=== PATIENT | female | born 1995 | race African-American/Black ===

== ENCOUNTER → 2018-12-01 | Outpatient (CLI) | payer SELFPAY ==
--- NOTE | 2018-12-01 15:47 | RADIOLOGY REPORT (SQ) ---
EXAM DESCRIPTION: U/S [id number] TRNABD 1GES W/ODOP COMPLETED DATE/TIME: 12/01/2018 3:29 pm REASON FOR STUDY: Z34.01 ENCNTR FOR SUPRVSN OF NORMAL FIRST PREG, FIRST TRIMESTER Z34.01 ENCNTR FOR SUPRVSN OF NORMAL FIRST PREG, FIRST TRIMES COMPARISON: None. TECHNIQUE: Transabdominal static and realtime grayscale images acquired of the pelvis. Additional se lected spectral and color Doppler images recorded. All images stored on PACs. bHCG: Not applicable. CLINICAL DATES: LMP 09/18/2018. 10 weeks 4 days LIMITATIONS: None. FINDINGS: FETUS: Single Living intrauterine . ULTRASOUND EGA: 10 weeks 5 days. ULTRASOUND NONI: 06/24/2019 EFW: Not applicable less than 20 weeks. CRL: 3.8 cm. FHR: 171 beats per minute. SURVEY: Too early to assess. AMNIOTIC FLUID: Adequate amount. PLACENTA: Not yet developed due to early gestation. SUBCHORIONIC BLEED: No SIZE OF BLEED: Not applicable. UTERUS: No masses or anomalies. 11.4 x 10.4 x 7.6 cm. CERVICAL LENGTH: 3.6 cm. Closed. RIGHT ADNEXA: Normal ovary with normal vascular flow. 4.2 x 2.7 x 2 cm. No adnexal free fluid. No adnexal masses. LEFT ADNEXA: Normal ovary with normal vascular flow. 2.6 x 2.1 x 1.7 cm. No adnexal free fluid. No adnexal masses. FREE FLUID: None. OTHER: No other significant finding. IMPRESSION: LIVING INTRAUTERINE . EGA 10 weeks 5 days. Trimester of : First - 0 to 13 weeks. TECHNICAL DOCUMENTATION: JOB ID: [id number] [employer]- All Rights Reserved rev Reading location - IP/workstation name: [email or web address]
== END ==
LOC: RAD 16:23
PROVIDERS: ATTEND Midwife
DX: Z34.01 Encounter for supervision of normal first pregnancy, first trimester (principal)
CPT/HCPCS: 76801

== ENCOUNTER 2018-12-19 09:41 | Emergency (ER) | payer MEDICAID ==
[2018-12-19 09:56] VITALS: BP 108/63
[2018-12-19] MEDS ORDERED: NORMAL SALINE 1000 ML 1,000 ML IV ONE (10:13)
--- NOTE | 2018-12-19 10:15 | ER Document Report ---
ED Medical Screen (RME) - General Chief Complaint: Constipation Stated Complaint: CONSTIPATION Time Seen by Provider: 12/19/18 10:09 Primary Care Provider: FELICIA MCGOVERN CNM [Primary Care Provider] - Follow up as needed TRAVEL OUTSIDE OF THE [place] IN LAST 30 DAYS: No - HPI Notes: 12/19/18 10:14 Patient is a 22-year-old female approximately 12-13 weeks who presents to the emergency department with mother complaining of inability to have a bowel movement over the last 5 days and having rectal pain. Patient states that she is still able to drink some fluids, but has not been eating much over the last couple days due to decreased appetite. She is not vomiting or having any vaginal discharge, odor, bleeding. No abdominal pain. Denies SANTORO, fever, neck pain, URI, CP, SOB, or rash. I have treated and performed a rapid initial assessment of this patient. A comprehensive ED assessment and evaluation of the patient, analysis of test results and completion of medical decision making process will be conducted by additional ED providers. PHYSICAL EXAMINATION: GENERAL: Well-appearing, well-nourished and in no acute distress. A&Ox4. Answers questions appropriately. LUNGS: Breath sounds clear to auscultation bilaterally and equal. No wheezes rales or rhonchi. HEART: Regular rate and rhythm without murmurs, rubs, gallops. ABDOMEN: Soft, nondistended abdomen. No guarding, no rebound. Normal bowel sounds present. No CVA tenderness bilaterally. Nontender Extremities: No cyanosis, clubbing, or edema b/l. NEUROLOGICAL: Normal speech, normal gait. PSYCH: Normal mood, normal affect. - Related Data Allergies/Adverse Reactions: nickel [Nickel] Allergy (Verified 01/24/13 16:07) rash Past Medical History Neurological Medical History: Reports: Hx Seizures - Immunizations Immunizations up to date: Yes Hx Diphtheria, Pertussis, Tetanus Vaccination: Yes Physical Exam - Vital signs Vitals: Temp Pulse Resp BP Pulse Ox 98.3 F 110 H 16 108/63 100 12/19/18 09:55 12/19/18 09:55 12/19/18 09:55 12/19/18 09:55 12/19/18 09:55 Course - Vital Signs Vital signs: Temp Pulse Resp BP Pulse Ox 98.3 F 110 H 16 108/63 100 12/19/18 09:55 12/19/18 09:55 12/19/18 09:55 12/19/18 09:55 12/19/18 09:55 Doctor's Discharge - Discharge Referrals: FELICIA MCGOVERN CNM [Primary Care Provider] - Follow up as needed
[2018-12-19] MEDS ORDERED: MAGNESIUM CITRATE 296 ML BOTTLE PO ONE (11:33)
[2018-12-19] MEDS ORDERED: METOCLOPRAMIDE HCL INJ/PF 10 MG/2 ML SDV IV ONE (11:34)
--- NOTE | 2018-12-19 11:34 | ER Document Report ---
ED General - General Chief Complaint: Constipation Stated Complaint: CONSTIPATION Time Seen by Provider: 12/19/18 10:09 Primary Care Provider: FELICIA MCGOVERN CNM [NO LOCAL MD] - Follow up in 3-5 days Notes: Patient is a 22-year-old female currently 12 weeks gravid that presents to the emergency department for chief complaint of constipation. Patient states his been having trouble with bowel movements, the last normal and she is had was about 5 days ago, she is been trying axin-iyp-cxfxwed medications including Metamucil, MiraLAX and milk of magnesia, but she is only been sipping them whenever they are offered by her mother to try to help with her constipation. She states she is been having nausea and vomiting as well. She did try an enema, without much success of relief of her symptoms so they decided to bring her to the emergency department to be evaluated. She is previously healthy otherwise, denies any fevers, chills, dysuria, hematuria, abdominal pain, or chest pain or shortness of breath Past Medical History: Seizure disorder Past Surgical History: Denies surgical history Social History: Denies tobacco, alcohol or drug use Family History: Reviewed and noncontributory for presenting illness Allergies: Reviewed, see documented allergy list. REVIEW OF SYSTEMS: Other than noted above, the 12 point review of systems was reviewed with the patient and were negative, all pertinent findings are included in the HPI. PHYSICAL EXAMINATION: Vital signs reviewed, nursing noted reviewed. GENERAL: Well-appearing, well-nourished and appears mildly uncomfortable HEAD: Atraumatic, normocephalic. EYES: Eyes appear normal, extraocular movements intact, sclera anicteric, conjunctiva are normal. ENT: nares patent, oropharynx clear without exudates. Moist mucous membranes. NECK: Normal range of motion, supple without lymphadenopathy LUNGS: Breath sounds clear to auscultation bilaterally and equal. No wheezes rales or rhonchi. HEART: Heart rate mildly tachycardic and regular rhythm without murmurs ABDOMEN: Soft, nontender, normoactive bowel sounds. No rebound, guarding, or rigidity. No masses appreciated. EXTREMITIES: Nontender, good range of motion, no pitting or edema. NEUROLOGICAL: No focal neurological deficits. Moves all extremities spontaneously Motor and sensory grossly intact on exam. PSYCH: Normal mood, normal affect. SKIN: Warm, Dry, normal turgor, no rashes or lesions noted on exposed skin TRAVEL OUTSIDE OF THE [place] IN LAST 30 DAYS: No - Related Data Allergies/Adverse Reactions: nickel [Nickel] Allergy (Verified 01/24/13 16:07) rash Past Medical History - Social History Smoking Status: Never Smoker Chew tobacco use (# tins/day): No Frequency of alcohol use: None Drug Abuse: None Family History: None, Reviewed & Not Pertinent Patient has suicidal ideation: No Patient has homicidal ideation: No Neurological Medical History: Reports: Hx Seizures Renal/ Medical History: Denies: Hx Peritoneal Dialysis - Immunizations Immunizations up to date: Yes Hx Diphtheria, Pertussis, Tetanus Vaccination: Yes Physical Exam - Vital signs Vitals: Temp Pulse Resp BP Pulse Ox 98.3 F 110 H 16 108/63 100 12/19/18 09:55 12/19/18 09:55 12/19/18 09:55 12/19/18 09:55 12/19/18 09:55 Course - Re-evaluation Re-evalutation: Patient seen and examined vital signs reviewed. Patient was treated with IV fluid, given magnesium citrate, patient initially offered an enema, but wanted to try the magnesium citrate first, she was given a dose of Reglan, to help her keep down the magnesium citrate. Results were reviewed when available and demonstrated possible uti in on UA, will treat with keflex as outpatient and send for culture The patient was re-evaluated and was not able to have BM with just magnesium citrate only tolerated 1/2 bottle. Patient then agreed to soap subs enema, of which she tolerated well and had a very large bowel movement and felt much better. Evaluation was most consistent with constipation and uti, given instruction for using miralax and advised keflex for UTI in . Patient agreed to follow -up as well. Results were discussed with the patient at this point, after careful consideration I feel that that patient can be discharged from the emergency department, the patient was educated treatments and reasons to return to the emergency department based on their presumed diagnosis as noted above, they were advised to followup with a primary care physician in 2-3 days. Patient was agreeable to plan of care. *Note is created using voice recognition software and may contain spelling, syntax or grammatical errors. Laboratory 12/19/18 12:52 Urine Color YELLOW Urine Appearance SLIGHTLY-CLOUDY Urine pH 5.0 Ur Specific [place] 1.016 Urine Protein NEGATIVE Urine Glucose (UA) NEGATIVE Urine Ketones 80 H Urine Blood NEGATIVE Urine Nitrite NEGATIVE Urine Bilirubin NEGATIVE Urine Urobilinogen 2.0 H Ur Leukocyte Esterase TRACE H Urine WBC (Auto) 8 Urine RBC (Auto) 3 Urine Bacteria (Auto) 3+ Squamous Epi Cells Auto 1 Urine Mucus (Auto) FEW Urine Ascorbic Acid NEGATIVE - Vital Signs Vital signs: Temp Pulse Resp BP Pulse Ox 98.3 F 110 H 16 108/63 100 12/19/18 09:55 12/19/18 09:55 12/19/18 09:55 12/19/18 09:55 12/19/18 09:55 - Laboratory Laboratory results interpreted by me: 12/19/18 12:52 Urine Ketones 80 H Urine Urobilinogen 2.0 H Ur Leukocyte Esterase TRACE H Discharge - Discharge Clinical Impression: Constipation Qualifiers: Constipation type: unspecified constipation type Qualified Code(s): K59.00 - Constipation, unspecified UTI (urinary tract infection) Qualifiers: Urinary tract infection type: site unspecified Hematuria presence: without hematuria Qualified Code(s): N39.0 - Urinary tract infection, site not specified Condition: Stable Disposition: HOME, SELF-CARE Instructions: Constipation ([facility]), Urinary Tract Infection ([facility]) Additional Instructions: It was noticed to have some bacteria in your urine, so we will give an antibiotic for 5 days, to take as well, we also send this for culture, if the antibiotic does not fit the bacteria that grows in the urine, we will call you and let you know, please take a daily capful of MiraLAX with whatever liquid beverage you would like, once daily, if you start to have liquid diarrhea, I would back off this medication and take it every other day if that occurs. Prescriptions: RX: Cephalexin Monohydrate [Keflex 500 mg Capsule] 500 mg PO BID 5 Days #10 capsule Polyethylene Glycol 3350 [Miralax] 17 gm PO DAILY #238 gm Referrals: FELICIA MCGOVERN CNM [NO LOCAL MD] - Follow up in 3-5 days
[2018-12-19 13:14] LABS: APPEARANCE,URINE SLIGHTLY-CLOUDY; BILIRUBIN,URINE NEGATIVE (NEGATIVE); COLOR,URINE YELLOW; GLUCOSE, URINE NEGATIVE (NEGATIVE); KETONES,URINE 80 mg/dL (NEGATIVE); LEUKOCYTE ESTERASE,URINE TRACE (NEGATIVE); NITRITE,URINE NEGATIVE (NEGATIVE); PROTEIN,URINE NEGATIVE (NEGATIVE); URINE SPECIFIC GRAVITY 1.016
[2018-12-19] MEDS ORDERED: MINERAL OIL 30 ML UDCUP PR ONE (13:46)
== END 2018-12-19 14:34 | disposition home or self-care (01) ==
LOC: ER 09:41
DX: O26.891 Other specified pregnancy related conditions, first trimester (principal); O23.41 Unspecified infection of urinary tract in pregnancy, first trimester; K59.00 Constipation, unspecified; Z3A.12 12 weeks gestation of pregnancy; Z79.899 Other long term (current) drug therapy
CPT/HCPCS: 99283; 96361; 96374; 87086; 81001; J3490 ×2; J2765; J7030

== ENCOUNTER 2019-01-18 14:20 | Emergency (ER) | payer MEDICAID ==
[2019-01-18 15:14] VITALS: BP 108/65
--- NOTE | 2019-01-18 15:43 | ER Document Report ---
HPI - HPI Time Seen by Provider: 01/18/19 15:42 Pain Level: 0 Notes: Patient is a 23-year-old female who is 17 weeks who reports that she fell down 3-4 stairs. She states that she tripped and fell landing on her right hip and right lumbar back area. Patient reports no symptoms and no pain but states that she would like to have her baby checked on. Patient denies any abnormal vaginal bleeding, abdominal cramping or any other concerning symptoms. - REPRODUCTIVE LMP: 09/18/18 Reproductive: REPORTS: : Past Medical History - General Information source: Patient - Social History Smoking Status: Never Smoker Frequency of alcohol use: None Drug Abuse: None Family History: Reviewed & Not Pertinent Neurological Medical History: Reports: Hx Seizures Renal/ Medical History: Denies: Hx Peritoneal Dialysis Surgical Hx: Negative - Immunizations Immunizations up to date: Yes Hx Diphtheria, Pertussis, Tetanus Vaccination: Yes Vertical Provider Document - CONSTITUTIONAL Notes: PHYSICAL EXAMINATION: GENERAL: Well-appearing, well-nourished and in no acute distress. HEAD: Atraumatic, normocephalic. EYES: Pupils equal round extraocular movements intact, conjunctiva are normal. ENT: Nares patent NECK: Normal range of motion LUNGS: No respiratory distress Abdomen: Abdomen soft, nontender with no guarding and no rebound. Musculoskeletal: Normal range of motion NEUROLOGICAL: Normal speech, normal gait. PSYCH: Normal mood, normal affect. SKIN: Warm, Dry, normal turgor, no rashes or lesions noted. - INFECTION CONTROL TRAVEL OUTSIDE OF THE [place] IN LAST 30 DAYS: No Course - Re-evaluation Re-evalutation: 01/18/19 15:49 heart tones checked and were 148. Patient has no visible injuries. Patient has no pain or complaints. Patient will be discharged home in stable condition. - Vital Signs Vital signs: Temp Pulse Resp BP Pulse Ox 98.2 F 101 H 16 108/65 100 01/18/19 15:13 01/18/19 15:13 01/18/19 15:13 01/18/19 15:13 01/18/19 15:13 Discharge - Discharge Clinical Impression: Accident due to mechanical fall without injury Qualifiers: Encounter type: initial encounter Qualified Code(s): W19.XXXA - Unspecified fall, initial encounter Condition: Stable Disposition: HOME, SELF-CARE Additional Instructions: There were no signs of any visible trauma from your fall. Your baby's heart tones were checked and were found to be 148 bpm which is perfect. Please rest for the rest of the day. Increase your fluid intake. Return to the emergency department if you develop any new or worsening symptoms to include abdominal pain, vaginal bleeding or any abnormal vaginal discharge. Keep your OB follow-up scheduled for tomorrow. Referrals: JOSE A DALTON NP [Primary Care Provider] - Follow up as needed
== END 2019-01-18 16:06 | disposition home or self-care (01) ==
LOC: ER 14:20
DX: O26.92 Pregnancy related conditions, unspecified, second trimester (principal); W10.9XXA Fall (on) (from) unspecified stairs and steps, initial encounter
CPT/HCPCS: 99281

== ENCOUNTER 2019-05-01 18:07 | Emergency (ER) | payer MEDICAID ==
[2019-05-01] MEDS ORDERED: NORMAL SALINE 1000 ML 1,000 ML IV ONE (19:20)
--- NOTE | 2019-05-01 19:23 | ER Document Report ---
ED General - General Chief Complaint: Vomiting Stated Complaint: VOMITING Time Seen by Provider: 05/01/19 18:47 Primary Care Provider: [facility] [Provider Group] - Follow up in 3-5 days SHARONA ALVARADO MD [Primary Care Provider] - Follow up in 3-5 days Notes: Patient is a 23-year-old female, that is approximately 32 weeks gravid that presents to the emergency department for chief complaint of nausea and vomiting. Patient states that shortly prior to ED arrival, she had eaten some baked chicken, fried colorings, and some macaroni cheese, and shortly after had episode of vomiting, with a small amount of blood noted in it, and then she threw up a more time. She denies any nausea at this time, she is a little bit of a sore throat, she has drank some liquid, that caused some burning in her throat, she denies any pain at this time however. She states she has been spitting up some saliva, but denies any further vomiting. She denies having any abdominal pain, recent dysuria or hematuria. Denies any recent fevers, chills, night sweats, denies any other complaints at this time. She has been feeling movements. Past Medical History: Seizure disorder Past Surgical History: Denies recent or pertinent surgical history Social History: Denies tobacco, alcohol or drug use. Family History: Reviewed and noncontributory for presenting illness Allergies: Reviewed, see documented allergy list. REVIEW OF SYSTEMS: Other than noted above, the 12 point review of systems was reviewed with the patient and were negative, all pertinent findings are included in the HPI. PHYSICAL EXAMINATION: Vital signs reviewed, nursing noted reviewed. GENERAL: Well-appearing, well-nourished and in no acute distress. HEAD: Atraumatic, normocephalic. EYES: Eyes appear normal, extraocular movements intact, sclera anicteric, conjunctiva are normal. ENT: nares patent, oropharynx clear without exudates. Moist mucous membranes. NECK: Normal range of motion, supple without lymphadenopathy LUNGS: Breath sounds clear to auscultation bilaterally and equal. No wheezes rales or rhonchi. HEART: Regular rate and rhythm without murmurs ABDOMEN: Soft, gravid, nontender, normoactive bowel sounds. No rebound, guarding, or rigidity. No masses appreciated. EXTREMITIES: Nontender, good range of motion, no pitting or edema. NEUROLOGICAL: No focal neurological deficits. Moves all extremities spont aneously Motor and sensory grossly intact on exam. PSYCH: Normal mood, normal affect. SKIN: Warm, Dry, normal turgor, no rashes or lesions noted on exposed skin TRAVEL OUTSIDE OF THE [place] IN LAST 30 DAYS: No - Related Data Allergies/Adverse Reactions: nickel [Nickel] Allergy (Verified 05/01/19 18:08) rash Past Medical History - Social History Smoking Status: Unknown if Ever Smoked Family History: Reviewed & Not Pertinent Patient has suicidal ideation: No Patient has homicidal ideation: No Neurological Medical History: Reports: Hx Seizures Renal/ Medical History: Denies: Hx Peritoneal Dialysis - Immunizations Immunizations up to date: Yes Hx Diphtheria, Pertussis, Tetanus Vaccination: Yes Physical Exam - Vital signs Vitals: Temp Pulse Resp BP Pulse Ox 98.7 F 105 H 15 93/62 L 100 05/01/19 18:13 05/01/19 18:13 05/01/19 18:13 05/01/19 18:13 05/01/19 18:13 Course - Re-evaluation Re-evalutation: Patient seen and examined vital signs reviewed. Laboratory data and/or imaging were ordered as appropriate for the patient's presenting symptoms and complaint, with consideration of any critical or life t hreatening conditions that may be associated with their obtained history and exam as noted above. Patient was treated with IV fluids, and 1 dose of IV Zofran Results were reviewed when available and demonstrated mild leukocytosis, mild anemia, otherwise unremarkable, UA demonstrated leukocyte esterase, some white blood cells, and bacteria, no nitrites, suspect contaminant, will send for culture, will hold off on antibiotics at this time, patient has not grown uropathogens in the past. The patient was re-evaluated and was improved, no other episodes of vomiting. I did perform bedside ultrasound that demonstrated movements, and normal heart tone and heart rate of 144 on my Doppler. I discussed this case with the on-call [facility] [employer] [employer], Dr. Howard, and did not have any further recomme ndations, did not recommend any nonstress testing at this time, with normal heart movements and heart tone, and no pelvic cramping or pain. Evaluation was most consistent with nausea and vomiting, related, advised follow-up, given dispense pack of Zofran, patient agreeable and disch arged Results were discussed with the patient at this point, after careful consideration I feel that that patient can be discharged from the emergency department, the patient was educated treatments and reasons to return to the emergency department based on their presumed diagnosis as noted above, they were advised to followup with a primary care physician in 2-3 days. Patient was agreeable to plan of care. *Note is created using voice recognition software and may contain spelling, syntax or grammatical errors. Laboratory 05/01/19 05/01/19 05/01/19 19:00 19:00 19:55 WBC 11.1 H RBC 3.57 L Hgb 10.1 L Hct 30.0 L MCV 84 MCH 28.3 MCHC 33.7 RDW 14.0 Plt Count 141 L Seg Neutrophils % 81.4 H Lymphocytes % 12.0 L Monocytes % 5.9 Eosinophils % 0.5 Basophils % 0.2 Absolute Neutrophils 9.1 H Absolute Lymphocytes 1.3 Absolute Monocytes 0.7 Absolute Eosinophils 0.1 Absolute Basophils 0.0 Sodium 136.4 L Potassium 3.8 Chloride 104 Carbon Dioxide 23 Anion Gap 9 BUN 4 L Creatinine 0.49 L Est GFR ( Amer) > 60 Est GFR (Non-Af Amer) > 60 Glucose 79 Calcium 9.1 Total Bilirubin 1.3 Direct Bilirubin 0.1 Neonat Total Bilirubin Not Reportable Neonat Direct Bilirubin Not Reportable Neonat Indirect Bili Not Reportable AST 20 ALT 11 Alkaline Phosphatase 86 Total Protein 6.9 Albumin 3.8 Urine Color YELLOW Urine Appearance SLIGHTLY-CLOUDY Urine pH 6.0 Ur Specific [place] 1.010 Urine Protein NEGATIVE Urine Glucose (UA) NEGATIVE Urine Ketones 80 H Urine Blood NEGATIVE Urine Nitrite NEGATIVE Urine Bilirubin NEGATIVE Urine Urobilinogen 2.0 H Ur Leukocyte Esterase LARGE H Urine WBC (Auto) 31 Urine RBC (Auto) 3 Urine Bacteria (Auto) 3+ Urine WBC Clumps FEW Squamous Epi Cells Auto 6 Urine Mucus (Auto) RARE Urine Ascorbic Acid NEGATIVE - Vital Signs Vital signs: Temp Pulse Resp BP Pulse Ox 98.8 F 105 H 16 96/65 L 100 05/01/19 19:01 05/01/19 18:13 05/01/19 19:01 05/01/19 19:01 05/01/19 19:01 - Laboratory Result Diagrams: 05/01/19 19:00 05/01/19 19:00 Laboratory results interpreted by me: 05/01/19 05/01/19 05/01/19 19:00 19:00 19:55 WBC 11.1 H RBC 3.57 L Hgb 10.1 L Hct 30.0 L Plt Count 141 L Seg Neutrophils % 81.4 H Lymphocytes % 12.0 L Absolute Neutrophils 9.1 H Sodium 136.4 L BUN 4 L Creatinine 0.49 L Urine Ketones 80 H Urine Urobilinogen 2.0 H Ur Leukocyte Esterase LARGE H Discharge - Discharge Clinical Impression: Vomiting Qualifiers: Vomiting type: unspecified Vomiting Intractability: non-intractable Nausea presence: with nausea Qualified Code(s): R11.2 - Nausea with vomiting, unspecified Condition: Stable Disposition: HOME, SELF-CARE Instructions: Vomiting ([facility]) Additional Instructions: Please follow-up with [facility], you may take the prescribed Zofran, every 8 hours only if needed for nausea and vomiting. If you develop worsening symptoms, have any increased amount of bleeding with vomiting, please return to the emergency department to be reevaluated. Referrals: SHARONA ALVARADO MD [Primary Care Provider] - Follow up in 3-5 days [facility] [Provider Group] - Follow up in 3-5 days
[2019-05-01 19:30] LABS: ABSOLUTE EOSINOPHILS # (AUTO) 0.1 10^3/uL (0.0-0.6); ABSOLUTE LYMPHOCYTES (AUTO) 1.3 10^3/uL (0.5-4.7); ABSOLUTE MONOCYTES (AUTO) 0.7 10^3/uL (0.1-1.4); ABSOLUTE NEUT (AUTO) 9.1 10^3/uL (1.7-8.2); BASOPHILS % (AUTO) 0.2 % (0-2); EOSINOPHILS % (AUTO) 0.5 % (0-6); HEMOGLOBIN 10.1 g/dL (12.0-15.5); MEAN CORPUSCULAR HEMOGLOBIN 28.3 pg (27.0-33.4); MEAN CORPUSCULAR HGB CONC 33.7 g/dL (32.0-36.0); MEAN CORPUSCULAR VOLUME 84 fl (80-97); MONOCYTES % (AUTO) 5.9 % (3-13); PLATELET COUNT 141 10^3/uL (150-450); RED BLOOD COUNT 3.57 10^6/uL (3.72-5.28); SEGMENTED NEUTROPHILS % (AUTO) 81.4 % (42-78); TOTAL CELLS COUNTED % (AUTO) 100 %; WHITE BLOOD COUNT 11.1 10^3/uL (4.0-10.5)
[2019-05-01 19:32] LABS: ALBUMIN 3.8 g/dL (3.5-5.0); ALKALINE PHOSPHATASE 86 U/L (38-126); ANION GAP 9 (5-19); ASPARTATE AMINO TRANSFERASE 20 U/L (14-36); BILIRUBIN,DIRECT 0.1 mg/dL (0.0-0.4); BILIRUBIN,TOTAL 1.3 mg/dL (0.2-1.3); BLOOD UREA NITROGEN 4 mg/dL (7-20); CALCIUM 9.1 mg/dL (8.4-10.2); CARBON DIOXIDE 23 mmol/L (22-30); CHLORIDE 104 mmol/L (98-107); GLUCOSE 79 mg/dL (75-110); POTASSIUM 3.8 mmol/L (3.6-5.0); TOTAL PROTEIN 6.9 g/dL (6.3-8.2)
[2019-05-01] MEDS ORDERED: ONDANSETRON HCL INJ/PF 4 MG/2 ML SDV IV ONE (19:35)
[2019-05-01 20:14] LABS: APPEARANCE,URINE SLIGHTLY-CLOUDY; BILIRUBIN,URINE NEGATIVE (NEGATIVE); COLOR,URINE YELLOW; GLUCOSE, URINE NEGATIVE (NEGATIVE); KETONES,URINE 80 mg/dL (NEGATIVE); LEUKOCYTE ESTERASE,URINE LARGE (NEGATIVE); NITRITE,URINE NEGATIVE (NEGATIVE); PROTEIN,URINE NEGATIVE (NEGATIVE)
[2019-05-01] MEDS ORDERED: ONDANSETRON ODT 4 MG TAB (6 TAB/ER DISP) PO PRN (20:59)
[2019-05-01 21:28] VITALS: BP 119/81
== END 2019-05-01 21:10 | disposition home or self-care (01) ==
LOC: ER 18:07
DX: O21.9 Vomiting of pregnancy, unspecified (principal); Z3A.32 32 weeks gestation of pregnancy
CPT/HCPCS: 36415; 87086; 85025; 80053; 81001; J2405; J7030; 96361; 96374; 99284

== ENCOUNTER 2019-06-19 18:19 | Inpatient (IN) | payer MEDICAID ==
[2019-06-19 19:07] LABS: APPEARANCE,URINE SLIGHTLY-CLOUDY; BILIRUBIN,URINE NEGATIVE (NEGATIVE); COLOR,URINE YELLOW; GLUCOSE, URINE NEGATIVE (NEGATIVE); KETONES,URINE 80 mg/dL (NEGATIVE); LEUKOCYTE ESTERASE,URINE SMALL (NEGATIVE); NITRITE,URINE NEGATIVE (NEGATIVE); PROTEIN,URINE NEGATIVE (NEGATIVE); URINE SPECIFIC GRAVITY 1.009
[2019-06-19 19:27] LABS: URINE AMPHETAMINES SCREEN NEGATIVE; URINE BARBITURATES SCREEN NEGATIVE; URINE BENZODIAZEPINES SCREEN NEGATIVE; URINE COCAINE SCREEN NEGATIVE; URINE MARIJUANA (THC) SCREEN NEGATIVE; URINE METHADONE SCREEN NEGATIVE; URINE PHENCYCLIDINE SCREEN NEGATIVE
[2019-06-19] MEDS: RINGERS SOLUTION,LACTATED 1,000 ML IV PRN (20:16)
--- NOTE | 2019-06-19 23:12 | RADIOLOGY REPORT (SQ) ---
EXAM DESCRIPTION: US BIOPHYSICAL PROFILE WITHOUT NON STRESS TEST COMPLETED DATE/TME: 06/19/2019 21:25 CLINICAL HISTORY: 23 years, Female, nonreactive NST, pls add position COMPARISON: None. TECHNIQUE: Emergent biophysical profile LIMITATIONS: None. FINDINGS: breathing movement: Score 02. posture/tone: Score 2 of 2. movement: Score 2 of 2. Amniotic fluid volume: Score 2 of 2. heart tones 150 bpm. Vertex presentation. Amniotic fluid index 5.9 cm, maximum ventral pocket 3.3 cm IMPRESSION: biophysical profile score 6 of 8. Close obstetric follow-up recommended copyright 2010 [employer]- All Rights Reserved
[2019-06-19] MEDS ORDERED: MAG HYDROX/AL HYDROX/SIMETH SUSP 30 ML UDCUP PO PRN (23:21)
[2019-06-19] MEDS ORDERED: ZOLPIDEM TARTRATE 5 MG TABLET PO PRN (23:21)
[2019-06-19] MEDS ORDERED: ACETAMINOPHEN 325 MG TABLET PO PRN (23:21)
[2019-06-19] MEDS ORDERED: DINOPROSTONE 10 MG VAGINAL INSERT.SR ONE (23:23)
[2019-06-20] LABS: ABSOLUTE LYMPHOCYTES (AUTO) 1.4 10^3/uL (0.5-4.7); ABSOLUTE MONOCYTES (AUTO) 0.6 10^3/uL (0.1-1.4); BASOPHILS % (AUTO) 0.4 % (0-2); EOSINOPHILS % (AUTO) 0.4 % (0-6); HEMATOCRIT 25.9 % (36.0-47.0); HEMOGLOBIN 8.8 g/dL (12.0-15.5); LYMPHOCYTES % (AUTO) 15.8 % (13-45); MEAN CORPUSCULAR VOLUME 74 fl (80-97); MONOCYTES % (AUTO) 6.8 % (3-13); PLATELET COUNT 142 10^3/uL (150-450); RED BLOOD COUNT 3.52 10^6/uL (3.72-5.28); RED CELL DISTRIBUTION WIDTH 15.5 % (11.5-14.0); SEGMENTED NEUTROPHILS % (AUTO) 76.6 % (42-78); TOTAL CELLS COUNTED % (AUTO) 100 %; WHITE BLOOD COUNT 9.1 10^3/uL (4.0-10.5)
[2019-06-20] MEDS ORDERED: RINGERS SOLUTION,LACTATED 300 ML IV ONE (00:45)
--- NOTE | 2019-06-20 00:51 | Admission Physical ---
Datetime Report Generated by CPN: 06/20/2019 00:51 CURRENT ADMISSION Chief Complaint: Other Indication for Induction: Oligohydramnios Admit Impression : Term, Intrauterine Admit Plan: Initiate Labor Induction Protocol ALLERGIES Medication Allergies: No Medication Allergies: nickel/rash (05/01/2019) Latex: No Latex Allergies OBSTETRICAL HISTORY EDC: 06/25/2019 00:00 : 1 Para: 0 Term: 0 : 0 SAB: 0 IAB: 0 Ectopic: 0 Livin Cesareans: 0 VBACs: 0 Multiple Births: 0 Gestational Diabetes: No Rh Sensitization: No Incompetent Cervix: No ELIZA: No Infertility: No ART Treatment: No Uterine Anomaly: No IUGR: No Hx Previous C/S: No Macrosomia: No Hx Loss/Stillborn: No PIH: No Hx : No Placenta Previa/Abruption: No Depression/PP Depression: No PTL/PROM: No Post Hemorrhage: No Current Procedures: Ultrasound Obstetrical History Comments: G1- current SEE RECORDS Alcohol: No Marijuana : No Cocaine: No Other Illicit Drugs: No Cigarettes: Never Smoker. [id number] MEDICAL HISTORY Diabetes: No Blood Transfusion: No Pulmonary Disease (Asthma, TB): No Breast Disease: No Hypertension: No [employer] Surgery: No Heart Disease: No Hosp/Surgery: Yes Autoimmune Disorder: No Anesthetic Complications: No Kidney Disease: No Abnormal Pap Smear: No Neuro/Epilepsy: Yes Psychiatric Disorders: Yes Other Medical Diseases: No Hepatitis/Liver Disease: No Significant Family History: No Varicosities/Phlebitis: No Trauma/Violence : No Thyroid Dysfunction: No Medical History Comments: seizures since -14y/o, none in the past 5 yrs, lamictal stopped 12/06/18 panic attack x2 as teen hospitalized for seizures 2010 INFECTIOUS HISTORY Gonorrhea: No Genital Herpes: No Chlamydia: No Tuberculosis: No Syphilis: No Hepatitis: No HIV/AIDS Exposure: No Rash or Viral Illness: No HPV: No PHYSICAL EXAM General: Normal HEENT: Normal Neurologic: Normal Thyroid: Normal Heart: Normal Lungs: Normal Breast: Deferred Back: Normal Abdomen: Normal Genitourinary Exam: Normal Extremities: Normal DTRs: Normal Pelvic Type: Adequate FETUS A EGA: 39.2 Admit Comment: oligo and BOP 6 PLANS FOR LABOR AND DELIVERY Labor and Delivery: None Pain Management: Epidural Feeding Preference: Breast Benefit of Breast Feed Discussed: Yes Circumcision: N/A INFORMED CONSENT Signature: with User ID: [email or web address]
[2019-06-20] MEDS ORDERED: DINOPROSTONE 10 MG VAGINAL INSERT.SR PV ONE (00:59)
[2019-06-20] MEDS ORDERED: HYDROXYZINE PAMOATE 50 MG CAPSULE ONE (02:26)
[2019-06-20] MEDS: RINGERS SOLUTION,LACTATED 1,000 ML IV PRN ×3 (02:30→20:26)
[2019-06-20] MEDS: HYDROXYZINE PAMOATE 50 MG CAPSULE PO SCH ×2 (02:30→22:44)
[2019-06-20] MEDS ORDERED: OXYTOCIN/NORMAL SALINE 0 UNIT/0 ML RTUINJ ONE ×2 (07:38→10:36)
[2019-06-20] MEDS ORDERED: OXYTOCIN 10 UNIT/ML VIAL ONE ×2 (07:38→10:36)
[2019-06-20] MEDS ORDERED: LIDOCAINE 1% INJ-PF (10 MG/ML) 30 ML SDV ONE (07:38)
[2019-06-20] MEDS ORDERED: MISOPROSTOL 0.2 MG TABLET ONE (07:38)
[2019-06-20] MEDS ORDERED: CEFAZOLIN INJ 1 GM VIAL ONE (10:26)
[2019-06-20] MEDS ORDERED: CITRIC ACID/SODIUM CITRATE ORAL SOLN 15 ML UDCUP ONE (10:35)
[2019-06-20] MEDS ORDERED: MIDAZOLAM 2 MG/2 ML INJ ONE (10:36)
[2019-06-20] MEDS ORDERED: EPHEDRINE SULFATE INJ 50 MG/1 ML AMPULE ONE (10:36)
[2019-06-20] MEDS ORDERED: ONDANSETRON HCL INJ/PF 4 MG/2 ML SDV ONE (10:36)
[2019-06-20] MEDS ORDERED: KETOROLAC TROMETHAMINE INJ/PF 30 MG/1 ML SDV ONE (10:36)
[2019-06-20] MEDS ORDERED: FENTANYL CITRATE INJ/PF 100 MCG/2 ML AMPUL ONE ×2 (10:36→13:36)
[2019-06-20] MEDS ORDERED: PHENYLEPHRINE HCL INJ/PF 10 MG/1 ML SDV ONE (10:37)
[2019-06-20] MEDS ORDERED: MEASLES,MUMPS&RUBELLA VACC/PF 0.5 ML VIAL SUBCUT PRN (11:47)
[2019-06-20] MEDS ORDERED: PROMETHAZINE HCL INJ 25 MG/1 ML VIAL IV PRN (11:47)
[2019-06-20] MEDS ORDERED: ACETAMINOPHEN 1,000 MG/100 ML RTUPB IV PRN (11:47)
[2019-06-20] MEDS ORDERED: OXYTOCIN/NORMAL SALINE 20 UNIT/1,000 ML RTUINJ IV PRN (11:47)
[2019-06-20] MEDS ORDERED: OXYCODONE-ACETAMINOPHEN 5-325 MG TABLET PO PRN ×2 (11:47)
[2019-06-20] MEDS ORDERED: SIMETHICONE 80 MG TAB.CHEW PO PRN (11:47)
[2019-06-20] MEDS ORDERED: DIPH/PERTUSS(ACELL)/TETANUS VAC/PF 0.5 ML SYR (>=10YO) IM PRN (11:47)
[2019-06-20] MEDS ORDERED: ACETAMINOPHEN 325 MG TABLET PO PRN (11:47)
[2019-06-20] MEDS ORDERED: MORPHINE SULFATE 10 MG/ML INJ IV PRN (11:47)
[2019-06-20] MEDS ORDERED: RINGERS SOLUTION,LACTATED 1,000 ML IV PRN (11:47)
--- NOTE | 2019-06-20 11:54 | Operative Report ---
Operative Report DATE OF SURGERY: 06/20/19 PREOPERATIVE DIAGNOSIS: IUP @ 39, oligohydramnios, nonreassuring heart to anika POSTOPERATIVE DIAGNOSIS: Same OPERATION: Primary low transverse hysterotomy section SURGEON: SHARONA ALVARADO ANESTHESIA: Spinal TISSUE REMOVED OR ALTERED: Placenta COMPLICATIONS: None QUANTITATIVE BLOOD LOSS: 628 INTRAOPERATIVE FINDINGS: Female cephalic presentation Apgars of 9 9 umbilical cord around nuchal, minimal amniotic fluid, 1-1/2 cm fibroid in the right fundus. PROCEDURE: PROCEDURE IN DETAIL: The patient was taken to the operating room, prepared and draped in a normal sterile fashion in a supine position with a leftward tilt. A transverse skin incision was made with a scalpel and carried through to the underlying layer of fascia with the same scalpel. The fascia was excised in the midline and extended laterally with Mariel. The fascia was then dissected from the rectus muscle sharply with Mariel and the rectus muscle was divided and the peritoneal cavity was entered sharply with the same Metzenbaum. With good visualization of the bladder and the uterus the bladder blade was inserted. The hysterotomy was nicked with a scalpel and extended laterally with surgeon finger fraction. The infant was then delivered atraumatically. The nose and mouth were suctioned with a suction bulb, the cord was clamped and cut and handed off to awaiting pediatricians. Cord blood was collected. The placenta was removed manually. The uterus was exteriorized and cleared of clots and debris. The hysterotomy was closed with 0 Monocryl in a running, locked fashion. A second layer of the same suture was used to imbricate to ensure hemostasis. The uterus was returned to the abdomen and peritoneal cavity was cleared of clots and debris. The rectus muscle and peritoneum were repaired with mattress stitch of 2-0 Chromic. The fascia was closed with 0-Vicryl. The subcutaneous layer was closed with plain catgut and the skin was closed with 4-0 Vicryl. The patient tolerated the procedure well. Sponge, lap, and needle counts correct x2 and the patient was taken to recovery in stable condition.
[2019-06-20] MEDS: IBUPROFEN 800 MG TABLET PO SCH ×2 (12:21→17:15)
[2019-06-20] MEDS ORDERED: ACETAMINOPHEN 1,000 MG/100 ML RTUPB IV ONE (12:23)
[2019-06-20] MEDS ORDERED: KETOROLAC TROMETHAMINE INJ/PF 30 MG/1 ML SDV IV SCH ×2 (14:00→20:00)
[2019-06-20] MEDS: DOCUSATE SODIUM 100 MG CAPSULE PO SCH (17:15)
[2019-06-21] MEDS: KETOROLAC TROMETHAMINE INJ/PF 30 MG/1 ML SDV IV SCH ×2 (01:19→09:23)
[2019-06-21] MEDS: IBUPROFEN 800 MG TABLET PO SCH ×4 (03:16→21:21)
[2019-06-21 08:03] LABS: HEMATOCRIT 22.9 % (36.0-47.0); MEAN CORPUSCULAR HEMOGLOBIN 24.6 pg (27.0-33.4); MEAN CORPUSCULAR HGB CONC 33.5 g/dL (32.0-36.0); MEAN CORPUSCULAR VOLUME 74 fl (80-97); PLATELET COUNT 138 10^3/uL (150-450); RED BLOOD COUNT 3.12 10^6/uL (3.72-5.28); RED CELL DISTRIBUTION WIDTH 15.8 % (11.5-14.0); WHITE BLOOD COUNT 11.4 10^3/uL (4.0-10.5)
[2019-06-21 08:08] LABS: HEMOGLOBIN 7.7 g/dL (12.0-15.5)
[2019-06-21] MEDS: PRENATAL VITAMIN W DHA CAPSULE PO SCH (09:22)
[2019-06-21] MEDS: DOCUSATE SODIUM 100 MG CAPSULE PO SCH ×2 (09:22→17:35)
--- NOTE | 2019-06-21 10:25 | PDOC PROGRESS REPORT ---
Subjective-OB Progress Note for:: 06/21/19 Subjective: Doing well, FOB holding baby, feeling better today, less pain, voiding, tolerating low H&H, Physical Exam (OB) Vital Signs: Temp Pulse Resp BP Pulse Ox 98.1 F 69 16 104/70 97 06/21/19 07:46 06/21/19 07:46 06/21/19 07:46 06/21/19 07:46 06/21/19 07:46 Intake & Output 06/20/19 06/21/19 06/22/19 06:59 06:59 06:59 Intake Total 206 3831 Output Total 3000 Balance 206 831 Weight 59.6 kg - PIH/Pre-Eclampsia Clonus: Negative Headache: Absent Epigastric Pain: No Visual Changes: No - Dressing Removed: No Incision: Dressing, Well Approximated Closure Type: Honeycomb - Lochia Lochia Amount: Scant < 10 ml Lochia Color: Rubra/Red - Abdomen Description: Soft Hernia Present: No Fundal Description: Firm, Midline Fundal Height: u/u - u/2 Objective-Diagnostic Laboratory: 06/21/19 07:13 06/21/19 07:13 WBC 11.4 H RBC 3.12 L Hgb 7.7 L Hct 22.9 L MCV 74 L MCH 24.6 L MCHC 33.5 RDW 15.8 H Plt Count 138 L Assessment and Plan(PN) - Assessment and Plan (1) heart rate non-reassuring affecting management of mother Is this a current diagnosis for this admission?: Yes (2) delivery delivered Is this a current diagnosis for this admission?: Yes - Time Spent with Patient Time with patient: Less than 15 minutes Medications reviewed and adjusted accordingly: Yes - Disposition Anticipated Discharge: Home Within: within 24 hours
[2019-06-21] MEDS: HYDROXYZINE PAMOATE 50 MG CAPSULE PO SCH (21:23)
[2019-06-22] MEDS: IBUPROFEN 800 MG TABLET PO SCH ×2 (02:28→09:52)
[2019-06-22] MEDS ORDERED: INFLUENZA QUAD (6MOS+) 2019-20 VAC 0.5 ML SYR IM ONE (08:00)
[2019-06-22] MEDS: DOCUSATE SODIUM 100 MG CAPSULE PO SCH (09:52)
[2019-06-22] MEDS: PRENATAL VITAMIN W DHA CAPSULE PO SCH (09:52)
--- NOTE | 2019-06-22 09:59 | PDOC DISCHARGE SUMMARY ---
Impression - Admit/DC Date/PCP Admission Date/Primary Care Provider: 06/19/19 23:41 SHARONA ALVARADO MD Discharge Date: 06/22/19 - POD #2, doing well, no complaints, to go home today, UOB voiding. states has iron prescription at home to continue, A+, Rubella Immu ne, - Discharge Diagnosis (1) Anemia affecting in third trimester Is this a current diagnosis for this admission?: Yes (2) delivery delivered Is this a current diagnosis for this admission?: Yes (3) heart rate non-reassuring affecting management of mother Is this a current diagnosis for this admission?: Yes - Additional Information Resuscitation Status: Full Code Discharge Diet: As Tolerated, Regular Discharge Activity: Activity As Tolerated, No Driving, No Lifting Over 10 Pounds, Pelvic Rest Referrals: SHARONA ALVARADO MD [Primary Care Provider] - Prescriptions: Ibuprofen [Motrin 800 mg Tablet] 800 mg PO Q6A #60 tablet Oxycodone HCl/Acetaminophen [Percocet 5-325 mg Tablet] 1 tab PO Q4HP PRN #30 tablet PRN Reason: Pain Scale Of 3 Home Medications: Iron 1 tab PO DAILY 06/19/19 Vit,Calc76/Iron/Folic [Prenatabs Rx Tablet] 1 tab PO DAILY 06/19/19 Ibuprofen [Motrin 800 mg Tablet] 800 mg PO Q6A #60 tablet 06/22/19 Oxycodone HCl/Acetaminophen [Percocet 5-325 mg Tablet] 1 tab PO Q4HP PRN #30 tablet 06/22/19 HPI Reason(s) for Admission: Onset of Labor Procedures: Ultrasound Intrapartum Procedure(s): : Low Cervical, Transverse Hospital Course Hospital Course: routine Results Laboratory Results: WBC 11.4 10^3/uL (4.0-10.5) H 06/21/19 07:13 RBC 3.12 10^6/uL (3.72-5.28) L 06/21/19 07:13 Hgb 7.7 g/dL (12.0-15.5) L 06/21/19 07:13 Hct 22.9 % (36.0-47.0) L 06/21/19 07:13 MCV 74 fl (80-97) L 06/21/19 07:13 MCH 24.6 pg (27.0-33.4) L 06/21/19 07:13 MCHC 33.5 g/dL (32.0-36.0) 06/21/19 07:13 RDW 15.8 % (11.5-14.0) H 06/21/19 07:13 Plt Count 138 10^3/uL (150-450) L 06/21/19 07:13 Lymph % (Auto) 15.8 % (13-45) 06/19/19 23:46 Wagoner % (Auto) 6.8 % (3-13) 06/19/19 23:46 Eos % (Auto) 0.4 % (0-6) 06/19/19 23:46 Baso % (Auto) 0.4 % (0-2) 06/19/19 23:46 Absolute Neuts (auto) 7.0 10^3/uL (1.7-8.2) 06/19/19 23:46 Absolute Lymphs (auto) 1.4 10^3/uL (0.5-4.7) 06/19/19 23:46 Absolute Monos (auto) 0.6 10^3/uL (0.1-1.4) 06/19/19 23:46 Absolute Eos (auto) 0.0 10^3/uL (0.0-0.6) 06/19/19 23:46 Absolute Basos (auto) 0.0 10^3/uL (0.0-0.2) 06/19/19 23:46 Seg Neutrophils % 76.6 % (42-78) 06/19/19 23:46 Urine Color YELLOW 06/19/19 18:25 Urine Appearance SLIGHTLY-CLOUDY 06/19/19 18:25 Urine pH 6.0 (5.0-9.0) 06/19/19 18:25 Ur Specific Barnard 1.009 06/19/19 18:25 Urine Protein NEGATIVE mg/dL (NEGATIVE) 06/19/19 18:25 Urine Glucose (UA) NEGATIVE mg/dL (NEGATIVE) 06/19/19 18:25 Urine Ketones 80 mg/dL (NEGATIVE) H 06/19/19 18:25 Urine Blood NEGATIVE (NEGATIVE) 06/19/19 18:25 Urine Nitrite NEGATIVE (NEGATIVE) 06/19/19 18:25 Urine Bilirubin NEGATIVE (NEGATIVE) 06/19/19 18:25 Urine Urobilinogen 4.0 mg/dL (<2.0) H 06/19/19 18:25 Ur Leukocyte Esterase SMALL (NEGATIVE) H 06/19/19 18:25 Urine Ascorbic Acid NEGATIVE (NEGATIVE) 06/19/19 18:25 Urine Opiates Screen NEGATIVE 06/19/19 18:25 Urine Methadone Screen NEGATIVE 06/19/19 18:25 Ur Barbiturates Screen NEGATIVE 06/19/19 18:25 Ur Phencyclidine Scrn NEGATIVE 06/19/19 18:25 Ur Amphetamines Screen NEGATIVE 06/19/19 18:25 U Benzodiazepines Scrn NEGATIVE 06/19/19 18:25 Urine Cocaine Screen NEGATIVE 06/19/19 18:25 U Marijuana (THC) Screen NEGATIVE 06/19/19 18:25 RPR NONREACTIVE (NONREACTIVE) 06/19/19 23:46 Blood Type A POSITIVE 06/19/19 23:46 Antibody Screen NEGATIVE 06/19/19 23:46 Impressions: Stress Test 06/19/19 21:25 IMPRESSION: biophysical profile score 6 of 8. Close obstetric follow-up recommended copyright 2010 [employer]- All Rights Reserved Plan Health Concerns: Iron rich foods discussed Plan of Treatment: d/c to home, pt to f/u at [facility] in one week for incision check Time Spent: Less than 30 Minutes
[2019-06-22 11:24] VITALS: BP 105/69
--- NOTE | 2019-07-15 08:58 | PDOC DELIVERY SUMMARY ---
Delivery Summary - Maternal Hx : I Hx Para: 0 Risk Factors: Oligohydramnios Fluids: Clear - Delivery Labor: Not In Labor Presentation: Vertex Heart Rate Monitoring: Done Pre-Operatively Uterine Contraction Monitoring: External Pattern: Prolonged Decels Support Person Present: Yes Location: LD : Primary, Emergency Placenta: Within Normal Limits Number of Vessels (Cord): 3 Delivery of Placenta Date: 06/20/19 Delivery Quantitative Blood Loss (QBL): 650 - Medications Type of Anesthesia:: Spinal - Delivery Personnel MD: SHARONA ALVARADO
== END 2019-06-22 15:15 | disposition home or self-care (01) | DRG 788 ==
LOC: LC 18:19 → LR 23:41 → 2S 06-20 14:10
PROVIDERS: ADMIT Obstetrics & Gynecology Gynecology; ATTEND Obstetrics & Gynecology Gynecology
PROC: 10D00Z1 Extraction of Products of Conception, Low, Open Approach (ICD-10-PCS; principal; 2019-06-19)
PROC: 3E02340 Introduction of Influenza Vaccine into Muscle, Percutaneous Approach (ICD-10-PCS; 2019-06-22)
DX: O41.03X0 Oligohydramnios, third trimester, not applicable or unspecified (principal); O76 Abnormality in fetal heart rate and rhythm complicating labor and delivery; O99.02 Anemia complicating childbirth; D64.9 Anemia, unspecified; Z23 Encounter for immunization; Z3A.39 39 weeks gestation of pregnancy; Z37.0 Single live birth
CPT/HCPCS: 1961; 36415; 59025; 76819; 80307; 81005; 85025; 85027; 86592; 86850; 86900; 86901; 88307; 90686; 90715; 94799; J0131; J0690; J1885; J2250; J2270; J2370; J2405; J2590; J3010; J3490; J7120

== ENCOUNTER → 2019-09-30 | Outpatient (CLI) | payer MEDICAID ==
[2019-09-30 14:54] LABS: A TYPE INFLUENZA AG NEGATIVE (NEGATIVE); B INFLUENZA AG NEGATIVE (NEGATIVE)
== END ==
LOC: OD 13:48
PROVIDERS: ATTEND Nurse Practitioner Family
DX: R52 Pain, unspecified (principal); R11.10 Vomiting, unspecified
CPT/HCPCS: 87086; 87804

== ENCOUNTER → 2020-03-19 | Outpatient (CLI) | payer MEDICAID ==
--- NOTE | 2020-03-19 14:46 | RADIOLOGY REPORT (SQ) ---
EXAM DESCRIPTION: ANKLE RIGHT COMPLETE IMAGES COMPLETED DATE/TIME: 03/19/2020 2:32 pm REASON FOR STUDY: ACUTE PAIN OF RT FOOT;ACUTE RT ANKLE PAIN M79.671 PAIN IN RIGHT FOOT M25.571 MY N IN RIGHT ANKLE AND JOINTS OF RIGHT FOOT COMPARISON: None. NUMBER OF VIEWS: Three views. TECHNIQUE: AP, lateral, and oblique radiographic images acquired of the right ankle. LIMITATIONS: None. FINDINGS: MINERALIZATION: Normal. BONES: No acute fracture or dislocation. No worrisome bone lesions. JOINTS: No effusions. SOFT TISSUES: No soft tissue swelling. No foreign body. OTHER: No other significant finding. IMPRESSION: NEGATIVE STUDY OF THE RIGHT ANKLE. NO RADIOGRAPHIC EVIDENCE OF ACUTE INJURY. TECHNICAL DOCUMENTATION: JOB ID: [id number] 2010 [email or web address]- All Rights Reserved Reading location - IP/workstation name: [email or web address]
--- NOTE | 2020-03-19 14:47 | RADIOLOGY REPORT (SQ) ---
EXAM DESCRIPTION: FOOT RIGHT COMPLETE IMAGES COMPLETED DATE/TIME: 03/19/2020 2:32 pm REASON FOR STUDY: ACUTE PAIN OF RT FOOT;ACUTE RT ANKLE PAIN M79.671 PAIN IN RIGHT FOOT M25.571 MY N IN RIGHT ANKLE AND JOINTS OF RIGHT FOOT COMPARISON: None. NUMBER OF VIEWS: Three views. TECHNIQUE: AP, lateral and oblique radiographic images acquired of the right foot. LIMITATIONS: None. FINDINGS: MINERALIZATION: Normal. BONES: No acute fracture or dislocation. No worrisome bone lesions. JOINTS: No effusions. SOFT TISSUES: No soft tissue swelling. No foreign body. OTHER: No other significant finding. IMPRESSION: NEGATIVE STUDY OF THE RIGHT FOOT. NO RADIOGRAPHIC EVIDENCE OF ACUTE INJURY. TECHNICAL DOCUMENTATION: JOB ID: [id number] 2010 [employer]- All Rights Reserved Reading location - IP/workstation name: [email or web address]
== END ==
LOC: OD 14:03
PROVIDERS: ATTEND Nurse Practitioner Acute Care
DX: M79.671 Pain in right foot (principal); M25.571 Pain in right ankle and joints of right foot